=== PATIENT | female | born 1945 | race Caucasian/White ===

== ENCOUNTER → 2024-08-19 | Outpatient (CLI) | payer MEDICARE ==
--- NOTE | 2024-08-19 16:49 | US ---
EXAMINATION TYPE: US thyroid st tissue head/neck DATE OF EXAM: 08/19/2024 COMPARISON: NONE CLINICAL INDICATION: Female, 79 years old with history of L04.9 ACUTE LYMPHADENITIS, UNSPECIFIED; Enl arged lymph nodes TECHNIQUE: Grayscale and color Doppler imaging of the neck. FINDINGS: Prominent lymph node found on right lateral neck measuring 1.7 x 1.1 x 0.4cm. Prominent lymph node found on left lateral neck measuring 1.4 x 0.7 x 0.5cm IMPRESSION: No lymphadenopathy or mass. Normal appearing lymph nodes. [facility], , 08/19/2024 4:47 PM
== END | disposition home or self-care (01) ==
LOC: RADUSWWP 15:43
PROVIDERS: ATTEND Family Medicine
DX: L04.9 Acute lymphadenitis, unspecified (principal)
CPT/HCPCS: 76536